=== PATIENT | male | born 1995 | race African-American/Black ===

== ENCOUNTER 2018-05-26 17:28 | Emergency (ER) | payer MEDICAID, OTHER ==
[~2018-05-26] VITALS: Ht 170.2 cm; Wt 59.0 kg
[2018-05-26 18:03] VITALS: BP 110/66
[2018-05-26] MEDS ORDERED: methylPREDNISolone SOD SUCC 125 MG/2 ML VL IM ONE (19:15)
== END 2018-05-26 19:59 | disposition home or self-care (01) ==
LOC: ER 17:31
DX: J45.909 Unspecified asthma, uncomplicated (principal)
CPT/HCPCS: 71046; 96372; 99283; J2930

== ENCOUNTER 2023-02-26 15:15 | Emergency (ER) | payer MEDICAID, OTHER ==
[~2023-02-26] VITALS: Ht 172.7 cm; Wt 61.3 kg
[2023-02-26] MEDS ORDERED: ONDANSETRON HCL 4 MG/2 ML VIAL IM ONE (16:15)
[2023-02-26] MEDS ORDERED: HYDROcodone-ACET 10/325MG TAB PO ONE (16:15)
[2023-02-26 18:00] VITALS: PULSE 72; RESP 18; O2SAT 98
[2023-02-26] MEDS ORDERED: HYDROmorphone HCL 2 MG/ML VL/or syr IM ONE (18:00)
[2023-02-26 20:49] VITALS: BP 130/73; PULSE 66; RESP 20; TEMP 98.3; O2SAT 99
== END 2023-02-26 21:13 | disposition short-term general hospital (02) ==
LOC: EDBD 15:15 → ER 15:15
DX: S02.609A Fracture of mandible, unspecified, initial encounter for closed fracture (principal); W18.39XA Other fall on same level, initial encounter; Y93.89 Activity, other specified; Y92.89 Other specified places as the place of occurrence of the external cause; Y99.8 Other external cause status
CPT/HCPCS: 70486; 96372; 99285; J1170; J2405

== ENCOUNTER 2023-03-02 23:20 | Emergency (ER) | payer OTHER ==
[~2023-03-02] VITALS: Ht 172.7 cm; Wt 61.0 kg
[2023-03-03] MEDS ORDERED: HYDROmorphone HCL 2 MG/ML VL/or syr IV ONE
[2023-03-03] MEDS ORDERED: ONDANSETRON HCL 4 MG/2 ML VIAL IV ONE
[2023-03-03 00:50] VITALS: PULSE 71; RESP 20; O2SAT 100
[2023-03-03] MEDS ORDERED: MORP1TAB12 PO (02:07)
[2023-03-03 02:30] VITALS: BP 129/81; PULSE 80; RESP 16; TEMP 99; O2SAT 100
== END 2023-03-03 02:43 | disposition home or self-care (01) ==
LOC: ER 23:20
DX: S02.609D Fracture of mandible, unspecified, subsequent encounter for fracture with routine healing (principal); X58.XXXD Exposure to other specified factors, subsequent encounter
CPT/HCPCS: 96374; 96375; 99284; J1170; J2405